=== PATIENT | male | born 1990 | race Two or more races ===

== ENCOUNTER 2023-06-13 12:17 | Emergency (ER) | payer SELFPAY ==
[~2023-06-13] VITALS: Ht 172.7 cm; Wt 99.8 kg
[2023-06-13 12:49] VITALS: BP 130/76; TEMP 98.9; O2SAT 99
[2023-06-13] MEDS ORDERED: diphenhydrAMINE HCL 50 MG/ML VIAL ONE (15:29)
[2023-06-13] MEDS ORDERED: PROCHLORPERAZINE EDISYLATE 10 MG/2 ML VIAL ONE (15:30)
[2023-06-13] MEDS ORDERED: ACETAMINOPHEN ES 500 MG TABLET ONE (15:31)
[2023-06-13] MEDS: IV NS 0.9% 1,000 ML BAG IV ONE (15:32)
[2023-06-13] MEDS: ACETAMINOPHEN ES 500 MG TABLET PO ONE (15:32)
[2023-06-13] MEDS: diphenhydrAMINE HCL 50 MG/ML VIAL IV ONE (15:40)
[2023-06-13] MEDS: PROCHLORPERAZINE EDISYLATE 10 MG/2 ML VIAL IVP ONE (15:48)
[2023-06-13] MEDS ORDERED: ACET-2605 PO (17:25)
[2023-06-13] MEDS ORDERED: METO-295 PO (17:25)
[2023-06-13] MEDS ORDERED: IBUP-1957 PO (17:25)
[2023-06-13] MEDS ORDERED: KETOROLAC TROMETHAMINE 15 MG/ML VIAL ONE (17:29)
[2023-06-13] MEDS: KETOROLAC TROMETHAMINE 15 MG/ML VIAL IV ONE (17:32)
== END 2023-06-13 17:42 | disposition home or self-care (01) ==
LOC: ER 12:24
DX: J06.9 Acute upper respiratory infection, unspecified (principal); R51.9 Headache, unspecified; Z20.822 Contact with and (suspected) exposure to COVID-19
CPT/HCPCS: 99285; 96374; 70450; 96375; 96361; 87426; 87804 ×2; J0780; J1200; J7030; J1885